=== PATIENT | female | born 1980 | race Caucasian/White ===

== ENCOUNTER 2023-08-06 23:21 | Emergency (ER) | payer MEDICAID, SELFPAY ==
[2023-08-06 23:31] VITALS: BP 168/116; PULSE 80; RESP 16; TEMP 36.7; O2SAT 98; BMI 42.6
--- NOTE | 2023-08-06 23:52 | ED_ITS ---
HPI - Skin/Abscess/Foreign Bdy General: Chief complaint: Skin/Abscess/Foreign Body Stated complaint: Possible spider bite left brest Time Seen by Provider: 08/06/23 23:26 History of Present Illness: 43-year-old female comes in today with a n area of soreness to her breast that started about 3 days ago. Patient thought she might have been bit by something. Today the area opened up and was draining purulent fluid. Patient appears nontoxic. Patient reports using antibiotic ointment to the area. Review of Systems General: Reports: 10 or more systems reviewed and unremarkable except in HPI a nd below Physical Exam Const: COMMON NORMALS: alert HENMT: COMMON NORMALS: normocephalic HEAD & SCALP: normocephalic Neck/C-Spine: COMMON NORMALS: full ROM Resp: COMMON NORMALS: normal respiratory effort and clear to auscultation bilaterally AUSCULTATION: clear to auscultation bilaterally Cardio: COMMON NORMALS: regular rate and regular rhythm RATE: regular rate RHYTHM: regular rhythm GI: COMMON NORMALS: Soft to palpation and non-tender PALPATION: Yes Soft to palpation Back/Pelvis: COMMON NORMALS: thoracic and lumbar spine normal to inspection Extremity: COMMON NORMALS: full ROM Neuro: SENSORIUM/ORIENTATION: Yes alert Skin: NARRATIVE SKIN EXAM: 4 cm area of redness to the left breast, centralized open lesion draining purulent fluid. Installation Manager was present, Katie ARGUELLES. Course Vital Signs: Vital signs: Vital Signs Temperature 98.0 F 08/06/23 23:31 Pulse Rate 80 08/06/23 23:31 Respiratory Rate 16 08/06/23 23:31 Blood Pressure 168/116 08/06/23 23:31 Pulse Oximetry 98 08/06/23 23:31 Oxygen Delivery Me thod Room Air 08/06/23 23:31 MDM - Skin/Abscess/Foreign Bdy Medicial Decision Making Patient comes in with a draining wound to her left breast. On exam there is area of redness surrounding a draining open lesion. Differential diagnosis includes but not limited to abscess, inflammatory carcinoma, insect bite. Believe patient has a staph infection. Will start her on doxycycline 100 mg twice a day for 10 days. Patient was also written for some mupirocin ointment. Recommend follow-up with primary care return to ER for worsening symptoms. Patient reported understanding. All radiology interpretation(s) finalized by discharge Discharge Plan Discharge Patient Disposition: Home Clinical Impression: Abscess of skin or subcutaneous tissue Qualifiers: Site of cutaneous abscess: trunk Site of cutaneous abscess of trunk: chest wall Qualified Code(s): L02.213 - Cutaneous abscess of chest wall Condition: Stable Prescriptions: New doxycycline hyclate 100 mg capsule 100 mg PO BID 10 Days Qty: 20 0RF mupirocin 2 % ointment 1 applic topical BID Qty: 15 0RF Discharge Orders: Discharge ED (Routine); Ordered 08/06/23 Ordered By: Erick Carrero Referrals: Primo Miguel MD [Primary Care Provider] - Discharge Diet: Usual diet Discharge Activity: Increase activity as tolerated Patient Instructions: Abscess (ED) Activity Restrictions/Additional Instructions: Take antibiotic as directed. Drink plenty of water and fluids with it. Follow- up with primary care for further instructions. Return to ED for new concerns. Coding Level of Care Code ED Superintendent [employer] for Jade Serrano
[2023-08-07] MEDS: doxycycline 100 mg Tablet PO (00:19)
== END 2023-08-07 00:39 | disposition home or self-care (01) ==
PROVIDERS: Emergency Provider Nurse Practitioner Family; PCP Family Medicine
DX: N61.1 Abscess of the breast and nipple (principal)
CPT/HCPCS: 99283